=== PATIENT | male | born 1965 | race Caucasian/White ===

== ENCOUNTER 2017-11-14 15:52 | Emergency (ER) | payer SELFPAY, OTHER | END 2017-11-14 20:10 | disposition left against medical advice (07) | LOC: E/R 15:52 | DX: Z53.21 Procedure and treatment not carried out due to patient leaving prior to being seen by health care provider (principal) | CPT/HCPCS: 93005 ==

== ENCOUNTER 2017-12-22 17:01 | Emergency (ER) | payer OTHER ==
[2017-12-22] MEDS ORDERED: IOHEXOL 100 ML (17:12)
[2017-12-22] MEDS ORDERED: SOD CHLORIDE 0.9% 100 ML (17:12)
[2017-12-22 17:33] LABS: ADD MAN DIFF? NO
[2017-12-22 17:34] LABS: BASOPHIL # 0.1 10^3/ul (0.0-0.1); BASOPHILS % 0.7 % (0.0-2.0); EOSINOPHILS % 0.2 % (0.0-7.0); HEMATOCRIT 42.6 % (42.0-52.0); HEMOGLOBIN 14.7 g/dl (14.0-18.0); LYMPHOCYTES # 1.7 10^3/ul (0.8-2.9); LYMPHOCYTES % 16.2 % (15.0-51.0); MEAN CORPUSCULAR HGB CONC 34.5 g/dl (32.0-37.0); MEAN CORPUSCULAR VOLUME 89.9 fl (82.0-101.0); MEAN PLATELET VOLUME 10.7 fl (7.4-10.4); MONOCYTE # 0.4 10^3/ul (0.3-0.9); MONOCYTES % 3.9 % (0.0-11.0); NEUTROPHIL # 8.4 10^3/ul (1.6-7.5); NEUTROPHILS % 78.5 % (39.0-77.0); PLATELET COUNT 194 10^3/UL (140-415); RED BLOOD COUNT 4.74 10^6/ul (4.70-6.10)
[2017-12-22 17:34] LABS: WHITE BLOOD COUNT 10.7 10^3/ul (4.8-10.8)
[2017-12-22 17:51] LABS: ANION GAP 16 (8-16); BLOOD UREA NITROGEN 15 mg/dl (7-20); CALCIUM 9.3 mg/dl (8.4-10.2); CARBON DIOXIDE 25 mmol/L (21-31); CHLORIDE 104 mmol/L (97-110); CHOL/HDL RATIO 4.3 RATIO; CHOLESTEROL 175 mg/dl (100-200); CREATININE 1.06 mg/dl (0.61-1.24); GLUCOSE 129 mg/dl (70-220); HDL CHOLESTEROL 40 mg/dl (28-71); LDL CHOLESTEROL,CALCULATED 120 mg/dl; POTASSIUM 4.5 mmol/L (3.5-5.1); SODIUM 140 mmol/L (135-144); TRIGLYCERIDES 77 mg/dl (0-149)
[2017-12-22 17:53] LABS: INR 1.04; PROTIME 13.7 Sec (11.9-14.9); PT RATIO 1.1
[2017-12-22 17:54] LABS: PARTIAL THROMBOPLASTIN TIME 28.6 Sec (25.0-35.0)
[2017-12-22 17:56] LABS: HEMOGLOBIN A1C 5.5 % (0-5.9)
[2017-12-22 18:03] LABS: TROPONIN-I < 0.012 ng/ml (0.00-0.12)
[2017-12-22] MEDS: ONDANSETRON 4 MG INJ IV ×2 (19:23→20:12)
[2017-12-22] MEDS: HYDROmorphONE 0.5 MG/0.5 ML SYG IV (19:23)
[2017-12-22] MEDS: ASPIRIN 81 MG TAB PO (19:23)
[2017-12-22] MEDS: HYDROmorphONE 1 MG/5 ML IV SYRINGE IV (20:12)
[2017-12-22] MEDS: LABETALOL HCL 20MG INJ IV (20:13)
== END 2017-12-23 00:32 | disposition short-term general hospital (02) ==
LOC: E/R 12-23 00:32
DX: I63.9 Cerebral infarction, unspecified (principal); I16.0 Hypertensive urgency; I10 Essential (primary) hypertension; R29.810 Facial weakness; R40.2142 Coma scale, eyes open, spontaneous, at arrival to emergency department; R40.2252 Coma scale, best verbal response, oriented, at arrival to emergency department; R40.2362 Coma scale, best motor response, obeys commands, at arrival to emergency department; Z79.82 Long term (current) use of aspirin; Z87.891 Personal history of nicotine dependence
CPT/HCPCS: 36415; 70450; 70496; 70498; 71045; 80048; 80061; 82962; 83036; 84484; 85025; 85610; 85730; 86850; 86900; 86901; 93005; 96374; 96375; 96376; 99291-25

== ENCOUNTER 2018-01-01 12:31 | Emergency (ER) | payer OTHER ==
[2018-01-01 13:15] LABS: ADD MAN DIFF? NO
[2018-01-01] MEDS: SOD CHLORIDE 0.9% 1,000 ML IV (13:15)
[2018-01-01 13:18] LABS: BASOPHIL # 0.1 10^3/ul (0.0-0.1); BASOPHILS % 0.6 % (0.0-2.0); EOSINOPHILS # 0.1 10^3/ul (0.0-0.5); EOSINOPHILS % 0.5 % (0.0-7.0); HEMATOCRIT 48.2 % (42.0-52.0); HEMOGLOBIN 16.2 g/dl (14.0-18.0); LYMPHOCYTES # 2.1 10^3/ul (0.8-2.9); LYMPHOCYTES % 14.6 % (15.0-51.0); MEAN CORPUSCULAR HGB CONC 33.6 g/dl (32.0-37.0); MEAN CORPUSCULAR VOLUME 95.3 fl (82.0-101.0); MEAN PLATELET VOLUME 12.2 fl (7.4-10.4); MONOCYTES % 6.6 % (0.0-11.0); NEUTROPHIL # 11.3 10^3/ul (1.6-7.5); NEUTROPHILS % 77.2 % (39.0-77.0); PLATELET COUNT 231 10^3/UL (140-415); RED BLOOD COUNT 5.06 10^6/ul (4.70-6.10); RED CELL DISTRIBUTION WIDTH 12.9 % (11.5-14.5)
[2018-01-01 13:18] LABS: WHITE BLOOD COUNT 14.6 10^3/ul (4.8-10.8)
[2018-01-01 13:46] LABS: ALANINE AMINOTRANSFERASE 27 IU/L (13-69); ALBUMIN 4.8 g/dl (3.3-4.9); ALBUMIN/GLOBULIN RATIO 1.45; ALKALINE PHOSPHATASE 82 IU/L (42-121); ANION GAP 23 (8-16); ASPARTATE AMINO TRANSFERASE 32 IU/L (15-46); BILIRUBIN,INDIRECT 0.7 mg/dl (0-1.1); BILIRUBIN,TOTAL 0.7 mg/dl (0.2-1.3); BLOOD UREA NITROGEN 30 mg/dl (7-20); CALCIUM 10.3 mg/dl (8.4-10.2); CARBON DIOXIDE 25 mmol/L (21-31); CHLORIDE 108 mmol/L (97-110); CREATININE 1.26 mg/dl (0.61-1.24); GLUCOSE 123 mg/dl (70-220); LIPASE 157 U/L (23-300); POTASSIUM 4.9 mmol/L (3.5-5.1); SODIUM 151 mmol/L (135-144); TOTAL PROTEIN 8.1 g/dl (6.1-8.1)
[2018-01-01 13:55] LABS: TROPONIN-I < 0.012 ng/ml (0.00-0.12)
[2018-01-01] MEDS: ONDANSETRON 4 MG INJ IV (16:27)
[2018-01-01] MEDS: morphine 4 MG/ML VIAL IV (16:27)
[2018-01-01] MEDS: HYDROmorphONE 0.5 MG/0.5 ML SYG IV (21:59)
[2018-01-01] MEDS ORDERED: DOCUSATE SODIUM 100 MG CAP PO (22:30)
[2018-01-01] MEDS ORDERED: ONDANSETRON 4 MG TAB PO (22:30)
[2018-01-01] MEDS ORDERED: FAMOTIDINE 20 MG TAB PO (22:30)
[2018-01-01] MEDS ORDERED: NACL 0.9% 3 ML SYG IV (22:30)
[2018-01-01] MEDS ORDERED: ACETAMINOPHEN 325 MG TAB PO (22:30)
[2018-01-01] MEDS ORDERED: DIVALPROEX (EC) 125 MG TAB PO (22:30)
[2018-01-01] MEDS ORDERED: MAGNESIUM HYDROXIDE 30ML CUP PO (22:30)
[2018-01-01] MEDS ORDERED: HYDROCODONE/APAP (5/325) TAB PO (22:30)
[2018-01-01 22:33] LABS: ADD UMIC NO; UR ASCORBIC ACID 40 mg/dL (NEGATIVE); UR BILIRUBIN (Dip) NEGATIVE (NEGATIVE); UR BLOOD (Dip) NEGATIVE (NEGATIVE); UR CLARITY CLEAR (CLEAR); UR COLOR YELLOW (YELLOW); UR GLUCOSE (Dip) NEGATIVE (NEGATIVE); UR KETONES (Dip) TRACE mg/dL (NEGATIVE); UR LEUKOCYTE ESTERASE (Dip) NEGATIVE Leu/ul (NEGATIVE); UR NITRITE (Dip) NEGATIVE (NEGATIVE); UR SPECIFIC GRAVITY (Dip) 1.019 (1.003-1.030); UR TOTAL PROTEIN (Dip) NEGATIVE (NEGATIVE); UR UROBILINOGEN (Dip) NEGATIVE (NEGATIVE)
[2018-01-01] MEDS: DEXTROSE 5%-0.45% NACL 1,000 ML IV (22:52)
[2018-01-02] MEDS ORDERED: ENOXAPARIN 40 MG/0.4 ML SYG SC (09:00)
[2018-01-02] MEDS ORDERED: ASPIRIN (EC) 81 MG TAB PO (09:00)
[2018-01-02] MEDS ORDERED: AMLODIPINE 10 MG TAB PO (09:00)
[2018-01-02] MEDS ORDERED: MIRTAZAPINE 15 MG TAB PO (21:00)
== END 2018-01-02 00:35 | disposition short-term general hospital (02) ==
LOC: E/R 01-02 00:35
DX: E86.0 Dehydration (principal); R62.7 Adult failure to thrive; F17.210 Nicotine dependence, cigarettes, uncomplicated; E66.9 Obesity, unspecified; I10 Essential (primary) hypertension; Z68.41 Body mass index [BMI] 40.0-44.9, adult; Z79.82 Long term (current) use of aspirin
CPT/HCPCS: 36415; 71045; 80053; 81003; 83690; 84484; 85025; 93005; 96374; 96375; 99285-25